=== PATIENT | male | born 1960 | race African-American/Black ===

== ENCOUNTER 2025-04-25 13:31 | Emergency (ER) | payer OTHER ==
[2025-04-25 13:41] VITALS: BP 189/82; PULSE 60; RESP 20; TEMP 98.7
[2025-04-25] MEDS ORDERED: HIV POST EXPOSURE PROPHYLAXIS KIT PO ONE (14:00)
[2025-04-25] MEDS ORDERED: DIPHTH,PERTUSS(ACELL),TET 0.5 ML DISP.SYRIN IM ONE (14:01)
[2025-04-25] MEDS: DIPHTH,PERTUSS(ACELL),TET 0.5 ML DISP.SYRIN IM ONE (14:13)
[2025-04-25] MEDS: HIV POST EXPOSURE PROPHYLAXIS KIT PO ONE (14:13)
[2025-04-25 14:32] LABS: ABSOLUTE IMMATURE GRANULOCYTES 0.02 x10^3/uL (0.0-0.031); BASOPHILS # 0.02 x10^3/uL (0.01-0.08); EOSINOPHIL % 0.5 % (0.8-7.0); EOSINOPHILS # 0.02 x10^3/uL (0.04-0.54); MCHC 34.0 g/dl (32.3-36.5); MEAN CELL VOLUME 86.7 fl (79.0-92.2); MEAN PLT VOLUME 10.0 fl (9.4-12.4); MONOCYTE # 0.27 x10^3/uL (0.30-0.82); MONOCYTE % 6.9 % (5.3-12.2); RDW 12.5 % (12.2-16.4)
[2025-04-25 14:51] LABS: CO2 27.0 mmol/L (21-32); GLUCOSE,RANDOM 97.0 mg/dL (74-106)
[2025-04-25 14:54] LABS: SGPT/ALT 18.0 U/L (13-61)
[2025-04-25 14:55] LABS: CREATININE 1.2 mg/dL (0.55-1.3); SGOT/AST 22.0 U/L (15-37)
[2025-04-25 14:56] LABS: TOT PROT 6.6 g/dl (6.4-8.2)
[2025-04-25 14:57] LABS: ALK PHOS 84.0 U/L (45-117)
[2025-04-28 04:29] LABS: HIV INTERPRETATION NEGATIVE (NEGATIVE)
[2025-04-28 21:42] LABS: HCV DIAGNOSTIC IN-HOUSE W/RFLX NON-REACTIVE (NONREACTIVE)
== END 2025-04-25 14:55 | disposition home or self-care (01) ==
LOC: JERFT 13:31
PROC: 3E0234Z Introduction of Serum, Toxoid and Vaccine into Muscle, Percutaneous Approach (ICD-10-PCS; principal; 2025-04-25)
DX: S51.031A Puncture wound without foreign body of right elbow, initial encounter (principal); I10 Essential (primary) hypertension; Z23 Encounter for immunization; W46.0XXA Contact with hypodermic needle, initial encounter
CPT/HCPCS: 36415; 80053; 85025; 86803; 87389; 87517; 90715; 99284-25